=== PATIENT | male | born 1995 ===

== ENCOUNTER 2024-08-27 13:32 | Outpatient (AMB) | payer OTHER, SELFPAY ==
[2024-08-27 13:34] VITALS: BP 114/80; PULSE 79; RESP 16; TEMP 37.2; O2SAT 97; BMI 26.4
--- NOTE | 2024-08-27 13:34 | A.OFFPC_ITS ---
Vital Signs 08/27/24 13:34 Height 5 ft 9 in Weight 178 lb 12.8 oz BMI 26.4 BP 114/80 Blood Pressure Location Lt brachial Position Sitting Respiration 16 Pulse 79 Pulse Source Pulse Oximeter Temp 98.9 F Temp Source Oral Pulse Oximetry (%) 97 Oxygen Delivery Method Room Air Intake Visit Reasons: PHARMACY BENEFIT MANAGER-PE Intake Note: Patient is a new patient here to establish care. Transferring care from [facility] in [place], [place]. Medical records have not been requested and have not been received. Patient completed Authorization to Release Medical Information form today. 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 Nguyen, [facility] in [place], [place] Last visit: October 2023 Last PE:May, Specialist no OBGYN:n/a Past medical history: eczema-reports seeing a credit operations processor but he thinks that it is stress related Medications: Family HX: Problem: The patient is a 29-year-old male presenting with requests for a dermatology referral and management of insomnia and anxiety. The patient had a severe allergic reaction to terbinafine, with an onset of hives occurring a few weeks after initiation, historically prescribed for toenail fungus by a credit operations processor. The patient reported significant and rapid weight fluctuations, both gain, and loss, each of approximately 10 pounds, without notable changes in exercise f requency or diet. There is a longstanding issue with anxiety, which manifests as difficulty in sleep onset due to intrusive thoughts. Despite experiencing anxiety from a young age, therapeutic interventions, including counseling and medications such as SSRIs, have proven insufficient or resulted in undesired side effects. However, the patient reports taking Zoloft for only 4 weeks, which might have not been enough to time or sufficient dose to make a difference; this was explained to the patient. The patient expresses a preference for non-pharmacological interventions for anxiety. The patient's insomnia has been persistent and exacerbated by anxiety, and previous trials with melatonin lead to adverse effects of grogginess without effective improvement in sleep quality. There is concern over potential food- induced bloating and discomfort, with dairy eliminated from the diet without full resolution. The patient is interested in further exploration of possible food allergies or sensitivities. [facility] Medical History (Updated 08/31/24 @ 20:33 by AZAM Mckinney) Eczema Surgical History Hx of cosmetic surgery Family History Mother FH: mental illness Bipolar depression Anxiety Family history of substance abuse Father High cholesterol Social History Household Members: Significant Other Housing: Apartment Alcohol intake: current Alcohol intake frequency: holidays/special occasions only Alcohol type: other Comment: Mixed drinks Patient Tobacco Use Status: Never used Tobacco Tobacco use type: Cigarette e-Cigarette/Vaping Use: Never Used Second Hand Smoke Exposure: Yes service: No Current occupational status: employed Current occupation: Human Resource Cognitive needs: No Hearing needs: No Vision needs: No Questionnaire PHQ-9 Over the last 2 weeks, how often have you been bothered by any of the following problems? 1. Little interest or pleasure in doing things: not at all 2. Feeling down, depressed, or hopeless: not at all 3. Trouble falling or staying asleep, or sleeping too much: several days 4. Feeling tired or having little energy: several days 5. Poor appetite or overeating: not at all 6. Feeling bad about yourself - or that you are a failure or have let yourself or your family down: several days 7. Trouble concentrating on things, such as reading the newspaper or watching television: several days 8. Moving or speaking so slowly that other people could have noticed. Or the opp osite - being so fidgety or restless that you have been moving around a lot more than usual: not at all 9. Thoughts that you would be better off or of hurting yourself in some way: not at all Total score: 4 Depression Screening Interpretation: Negative Depression Screening Done: Yes 21995 - PHQ-9 Billing: Yes Source: Developed by Drs. Esequiel De León, Nolvia Samaniego, Bhavik Marie and colleagues, with an educational mariola from [employer]. Thrive Questionnaire Date Thrive assessed: 08/27/24 I am a: Patient What is your living situation today?: I have a steady place to live Within the past 12 months, did the food you bought not last and you didn't have the money to get more?: Never true Within the past 12 months, did you worry whether your food would run out before you got money to buy more?: Never true Do you have trouble paying for medicines?: No Do you have trouble getting transportation to medical appointments?: No Do you have trouble paying your heating and electricity bill?: No Do you have trouble taking care of your child, family member or friend?: No Do you have trouble with day-to-day activities such as bathing, preparing meals, shopping, managing finances, etc.?: No Are you currently unemployed and looking for a job?: No Are you interested in more education?: Yes Please select the resources that you would like help with: Education Currently or been in a relationship where the following occur: No concerns reported THRIVE Score: 0 AUDIT C Alcohol Use Questionnaire (AUDIT-C) 1. How often do you have a drink containing alcohol?: Monthly or less 2. How many drinks containing alcohol do you have on a typical day when you are drinking?: 1 or 2 3. How often do you have six or more drinks on one occasion?: Never Total Score: 1 Score Reviewed/Action Taken: No PATRICIA-7 AMB Questionnaire PATRICIA-7 Date PATRICIA - 7 assessed: 08/27/24 Feeling nervous, anxious, or on edge: 1 = Several days Not being able to stop or control worryin = Several days Worrying too much about different things: 1 = Several days Trouble relaxin = Several days Being so restless that it is hard to sit still: 1 = Several days Becoming easily annoyed or irritable: 1 = Several days Feeling afraid as if something awful might happen: 1 = Several days Total PATRICIA-7 score (0-4 normal; 5-9 mild; 10-14 moderate; 15-21 severe): 7 Source: Developed by Drs. Esequiel De León, Nolvia Samaniego, Bhavik Marie and colleagues, with an educational mariola from [employer]. PATRICIA-7 Assessment Billing PATRICIA-7 Assessment Tool: PATRICIA-7 Assessment 18913 Review of Systems Const Denies headache(s) Eyes Denies loss of vision ENT Denies vertigo, Denies dizziness, Denies headache(s) and Denies sore throat Card Denies chest pain, Denies leg edema and Denies lightheadedness Resp Denies cough, Denies hemoptysis and Denies wheezing GI Denies abdominal pain, Denies melena, Reports bloating, Denies constipation, Denies diarrhea and Denies vomiting Denies dysuria, Denies urinary frequency and Denies urinary urgency Musc Denies arthralgias, Denies joint swelling, Denies numbness and Denies tingling Skin/Breast Reports rash (History of eczema) and Reports other (Toenail fungus) Neuro Denies Abnormal speech present, Denies behavioral changes, Denies vertigo, Denies dizziness, Denies headache(s), Denies loss of vision, Denies memory loss, Denies numbness and Denies tingling Psych Reports anxiety, Denies behavioral changes, Denies depression, Denies memory loss, Denies panic attacks and Reports other (insomnia) Lucio/Lymph Denies easy bleeding and Denies easy bruising Aller/Immun Denies wheezing Physical exam (Primary Care) Vital Signs: Last Vital Signs Temp 98.9 F 08/27/24 13:34 Pulse 79 08/27/24 13:34 Resp 16 08/27/24 13:34 BP 114/80 08/27/24 13:34 Pulse Ox 97 08/27/24 13:34 Oxygen Delivery Method Room Air 08/27/24 13:34 BMI result Body Mass Index 26.4 Tobacco/Smoking Status: Tobacco use Status Tobacco use date assessed 08/27/24 08/27/24 13:54 Patient Tobacco Use Status Never used Tobacco 08/27/24 13:54 Tobacco use type Cigarette 08/27/24 13:54 e-Cigarette/Vaping Use Never Used 08/27/24 13:54 PHQ-9: PHQ-9 Score PHQ-9: Total score 4 08/31/24 20:00 Depression Screening Interpretation: Negative Thrive Assessment: Date of Thrive Assessment Date Thrive assessed 08/27/24 08/27/24 13:54 Currently or been in a relationship where the following occur: No concerns reported Const General: healthy appearing, no acute distress, alert and awake Nutritional Appearance: well nourished Orientation/consciousness: oriented to person, oriented to place and oriented to time HENMT Ears: TM's normal bilaterally General nose exam: Normal nasal mucous membranes and turbinates present Eyes Conjunctivae: conjunctivae normal Sclerae: sclerae normal Pupils: Equal, round and reactive pupils present Neck Neck: Yes no lymphadenopathy and Yes no JVD Thyroid: Thyroid normal Carotids: no bruits Resp Effort & Inspection: normal respiratory effort and not tachypneic Auscultation: no crackles, no rales, no rhonchi and no wheezes Cardio Rate: regular rate Rhythm: regular rhythm Heart sounds: no murmurs and normal S1 and S2 GI Palpation (GI): Soft to palpation, nontender, no hepatomegaly and no splenomegaly Auscultation: normal bowel sounds Skin General skin exam: dry skin Nails: other (Toenail fungus) Neuro General: oriented to person, oriented to place and oriented to time Cranial nerves: Yes Equal, round and reactive pupils present Speech: No Abnormal speech present Gait exam (Neuro): Normal gait present Motor exam (neuro): no tremor noted Extrem Right upper extremity: full ROM Left upper extremity: full ROM Right lower extremity: full ROM; no edema Left lower extremity: full ROM; no edema Psych Mental Status: mental status grossly normal Speech and movement: Normal speech and movement present Affect: normal affect Attitude: cooperative Thought process: Normal thought process present Coding Level of Care Code New Pt Level 4 (79505) Diagnoses Eczema, unspecified type L30.9 Eczema type: unspecified Anxiety F41.9 Insomnia, unspecified type G47.00 Insomnia type: unspecified Abdominal bloating R14.0 Fluctuation of weight R68.89 Toenail fungus B35.1 Additional Codes PATRICIA-7 Assessment Billing - PATRICIA-7 Assessment Tool: PATRICIA-7 Assessment 85832 ([id number]) PHQ-9 - 55740 - PHQ-9 Billing: Yes ([id number]) Time Spent (min) 39 Assessment & Plan Assessment & Plan (1) Eczema: Code(s): L30.9 - Dermatitis, unspecified Category: Medical Qualifiers: Eczema type: unspecified Qualified Code(s): L30.9 - Dermatitis, unspecified Plan: Reports history of eczema and requesting a referral to Dermatology (2) Anxiety: Code(s): F41.9 - Anxiety disorder, unspecified Category: Medical Plan: Patient reports ongoing anxiety starting from a young age. Reports ineffective counseling and treatment was Zoloft. It was noted that the patient was started on Zoloft and self discontinue this medication 4 weeks in without tapering. Explained to the patient that this medication needs time to buildup in his syst em and it usually requires dose adjustment. He remains adamant about not wanting to speak to a therapist or being treated medically. Patient will rather go about this the natural route. (3) Insomnia: Code(s): G47.00 - Insomnia, unspecified Category: Medical Qualifiers: Insomnia type: unspecified Qualified Code(s): G47.00 - Insomnia, unspecified Plan: Complaints of insomnia reports that he tried melatonin but this made him feel groggy in the morning. The patient also reports eating late, close to bedtime and also being on his phone while in bed. Reinforced sleep hygiene. Offered to start the patient on a small dose of trazodone but he declined. (4) Abdominal bloating: Code(s): R14.0 - Abdominal distension (gaseous) Category: Medical Plan: Patient reports that he has an intolerance to dairy products and certain foods. He is interested on doing a food allergy testing. Educate the patient on low FODMAP diet chart. Recommend that he start looking at foods that are high on the list and eliminating them to see if he feels better. (5) Fluctuation of weight: Code(s): R68.89 - Other general symptoms and signs Category: Medical Plan: Patient reports that it is easy for him to put weight on but is hard to lose it, even though, he goes to the gym frequently every week. We will order a comprehensive set of labs to further evaluate (6) Toenail fungus: Code(s): B35.1 - Tinea unguium Category: Medical Plan: Ongoing, recalls being treated by terbinafine in couple of weeks into treatment developed severe allergy. We will refer the patient back to Dermatology to evaluate for possible further treatment options. Orders: Orders Complete Blood Count Auto Diff 08/27/24 F41.9 - Anxiety disorder, unspecified, G47.00 - Insomnia, unspecified, L30.9 - Dermatitis, unspecified, Z76.89 - Persons encountering health services in other specified circumstances Comprehensive [facility]. Panel Fast 08/27/24 F41.9 - Anxiety disorder, unspecified, G47.00 - Insomnia, unspecified, L30.9 - Dermatitis, unspecified, Z76.89 - Persons encountering health services in other specified circumstances Lipid Panel 08/27/24 F41.9 - Anxiety disorder, unspecified, G47.00 - Insomnia, unspecified, L30.9 - Dermatitis, unspecified, Z76.89 - Persons encountering health services in other specified circumstances UA CC w/rflx Micro + Cult 08/27/24 F41.9 - Anxiety disorder, unspecified, G47.00 - Insomnia, unspecified, L30.9 - Dermatitis, unspecified, Z76.89 - Persons encountering health services in other specified circumstances Vitamin D 25-OH Total 08/27/24 F41.9 - Anxiety disorder, unspecified, G47.00 - Insomnia, unspecified, L30.9 - Dermatitis, unspecified, Z76.89 - Persons encountering health services in other specified circumstances TSH reflex Free T4 08/27/24 F41.9 - Anxiety disorder, unspecified, G47.00 - Insomnia, unspecified, L30.9 - Dermatitis, unspecified, Z76.89 - Persons encountering health services in other specified circumstances Glucose Fasting 08/27/24 F41.9 - Anxiety disorder, unspecified, G47.00 - Insomnia, unspecified, L30.9 - Dermatitis, unspecified, Z76.89 - Persons encountering health services in other specified circumstances Referrals Dermatology Referral B35.1 - Tinea unguium, L30.9 - Dermatitis, unspecified
== END 2024-08-27 14:28 | disposition home or self-care (01) ==
LOC: HO.HMCH 13:33
DX: L30.9 Dermatitis, unspecified (principal); F41.9 Anxiety disorder, unspecified; G47.00 Insomnia, unspecified; R14.0 Abdominal distension (gaseous); R68.89 Other general symptoms and signs; B35.1 Tinea unguium

== ENCOUNTER → 2024-08-27 13:32 | Outpatient (BNVA) | payer OTHER, SELFPAY | DX: Z76.89 Persons encountering health services in other specified circumstances (principal); L30.9 Dermatitis, unspecified; F41.9 Anxiety disorder, unspecified; G47.00 Insomnia, unspecified; R14.0 Abdominal distension (gaseous); R68.89 Other general symptoms and signs; B35.1 Tinea unguium; Z13.30 Encounter for screening examination for mental health and behavioral disorders, unspecified | CPT/HCPCS: 96127; 99202 ==

== ENCOUNTER 2024-10-21 07:01 | Outpatient (REF) | payer OTHER, SELFPAY ==
[2024-10-21 07:19] LABS: MANUAL DIFF FLAG NO
[2024-10-21 07:35] LABS: Hematocrit 42.6 % (42.0-52.0); Hemoglobin 14.7 g/dl (14.0-18.0); Imm Gran Abs Auto 0.01 X10*3/uL (0.00-0.03); Imm Gran Pct Auto 0.2 % (0.0-0.4); Lymphocytes Absolute Auto 1.9 X10*3/uL (1.2-4.9); Mean Corpuscular HGB Conc 34.5 g/dl (31.0-36.0); Mean Corpuscular Hemoglobin 30.5 pg (27.0-33.0); Mean Corpuscular Volume 88.4 fL (80.0-98.0); NRBC Abs Auto 0.000 X10*3/uL (0.0-0.012); NRBC Pct Auto 0.0 /100WBC (0.0-0.2); Platelet Count 187 X10*3/uL (160-400); Red Blood Count 4.82 X10*6/uL (4.60-5.80); White Blood Count 4.7 X10*3/uL (4.8-10.8)
[2024-10-21 07:58] LABS: Appearance Urine Clear; Glucose Urine UA Negative (Negative); PH 7.0 (5.0-9.0); Specific Gravity - Urine <= 1.005 (1.005-1.025)
[2024-10-21 08:17] LABS: Alanine Aminotransferase 24 U/L (0-40); Albumin Level 4.5 g/dL (3.5-5.0); Alkaline Phosphatase 75 U/L (39-117); Anion Gap 11 (12-20); Aspartate Amino Transferase 22 U/L (5-37); Blood Urea Nitrogen 10 mg/dL (9-16); Calcium 9.0 mg/dL (8.4-10.2); Carbon Dioxide 25 mmol/L (22-29); Chloride 107 mmol/L (96-108); Cholesterol 198 mg/dL (<200); Estimated Glomerular Filt Rate > 60; HDL Cholesterol 57 mg/dL (>40); Potassium 4.1 mmol/L (3.3-5.1); Sodium 139 mmol/L (135-145); Total Protein 6.9 g/dL (6.5-8.0); Triglycerides 65 mg/dL (<150)
== END 2024-10-21 07:02 | disposition home or self-care (01) ==
LOC: HO.LAB 07:01
DX: Z76.89 Persons encountering health services in other specified circumstances (principal); F41.9 Anxiety disorder, unspecified; G47.00 Insomnia, unspecified; L30.9 Dermatitis, unspecified
CPT/HCPCS: 36415; 80053; 80061; 81003; 82306; 84443; 85025

== ENCOUNTER 2024-10-23 15:24 | Outpatient (AMB) | payer OTHER, SELFPAY ==
[2024-10-23 15:27] VITALS: BP 120/78; PULSE 72; RESP 16; TEMP 37.1; O2SAT 98; BMI 26.7
--- NOTE | 2024-10-23 15:27 | A.OFFPC_ITS ---
Vital Signs 10/23/24 15:27 Height 5 ft 9 in Weight 181 lb 2 oz BMI 26.7 BP 120/78 Blood Pressure Location Lt brachial Position Sitting Respiration 16 Pulse 72 Pulse Source Pulse Oximeter Temp 98.7 F Temp Source Oral Pulse Oximetry (%) 98 Oxygen Delivery Method Room Air Intake Visit Reasons: annual exam Restaurant Manager Required: No Accompanied by: Self / Same As Patient Allergies terbinafine Allergy (Severe, Uncoded 10/23/24 15:53) Hives Medication List - Last Reconciled 10/23/24 by AZAM Mckinney No Known Home Meds Tobacco use date assessed: 10/23/24 Dental Screening Dental Screen Date: 10/23/24 Did you have a dental visit in the last 12 months?: Yes Did you have a dental problem in the last 6 months where you did not have access to dental care?: No Was dental information given to patient?: Patient has dentist HPI annual exam HPI Details The patient is presenting for annual physical Dentist: two year Eye: no, reports that he will check if his insurance covers eye exam Snellen: Right: Left: Corrected vision:no STI screening:n/a Colonoscopy:n/a Pap Smer:n/a PHQ-9: Flu: he does not usually take the flu vaccines COVID:x2 Tdap:2020 Diet:regular Exercise: very active The patient is a 29-year-old male presenting for a wellness visit and management of hypercholesterolemia and vitamin D deficiency. He reports a history of hypercholesterolemia, with a recent LDL cholesterol level of 128 mg/dL, which is above the desired range of less than 100 mg/dL. The patient has been advised to reduce intake of foods high in cholesterol, such as red meat and shellfish, and to consume these foods in moderation. The patient also has a history of vitamin D deficiency, with a recent level of 29 ng/mL, which is slightly below the recommended level of 30 ng/mL. He has been advised to take a vitamin D3 supplement to improve his levels, especially during the winter months when sunlight exposure is limited. The patient reports difficulty losing weight despite being physically active and maintaining a healthy diet. He engages in regular cardiovascular exercise and weightlifting more than four times a week, and he avoids fried foods and sugary drinks. There is a family history of hypercholesterolemia, with his father having similar issues. l [facility] Medical History Eczema Surgical History Hx of cosmetic surgery Family History Mother FH: mental illness Bipolar depression Anxiety Family history of substance abuse Father High cholesterol Social History Household Members: Significant Other Housing: Apartment Alcohol intake: current Alcohol intake frequency: holidays/special occasions only Alcohol type: other Comment: Mixed drinks Patient Tobacco Use Status: Never used Tobacco Tobacco use type: Cigarette e-Cigarette/Vaping Use: Never Used Second Hand Smoke Exposure: Yes service: No Current occupational status: employed Current occupation: Human Resource Cognitive needs: No Hearing needs: No Vision needs: No Questionnaire Thrive Questionnaire Date Thrive assessed: 10/23/24 I am a: Patient What is your living situation today?: I have a steady place to live Within the past 12 months, did the food you bought not last and you didn't have the money to get more?: Never true Within the past 12 months, did you worry whether your food would run out before you got money to buy more?: Never true Do you have trouble paying for medicines?: No Do you have trouble getting transportation to medical appointments?: No Do you have trouble paying your heating and electricity bill?: No Do you have trouble taking care of your child, family member or friend?: No Do you have trouble with day-to-day activities such as bathing, preparing meals, shopping, managing finances, etc.?: No Are you currently unemployed and looking for a job?: No Are you interested in more education?: Yes Please select the resources that you would like help with: Education Currently or been in a relationship where the following occur: No concerns reported THRIVE Score: 0 PATRICIA-7 AMB Questionnaire PATRICIA-7 Date PATRICIA - 7 assessed: 10/23/24 Source: Developed by Drs. Esequiel De León, Nolvia Samaniego, Bhavik Marie and colleagues, with an educational mariola from [email or web address]. Review of Systems Const Denies headache(s) Eyes Denies loss of vision ENT Denies vertigo, Denies dizziness, Denies headache(s) and Denies sore throat Card Denies chest pain, Denies leg edema and Denies lightheadedness Resp Denies cough, Denies hemoptysis and Denies wheezing GI Denies abdominal pain, Denies melena, Denies constipation, Denies diarrhea and Denies vomiting Denies dysuria, Denies urinary frequency and Denies urinary urgency Musc Denies arthralgias, Denies joint swelling, Denies numbness and Denies tingling Neuro Denies Abnormal speech present, Denies behavioral changes, Denies vertigo, Denies dizziness, Denies headache(s), Denies loss of vision, Denies memory loss, Denies numbness and Denies tingling Psych Denies anxiety, Denies behavioral changes, Denies depression, Denies memory loss and Denies panic attacks Lucio/Lymph Denies easy bleeding and Denies easy bruising Aller/Immun Denies wheezing Physical exam (Primary Care) Vital Signs: Last Vital Signs BP 120/78 10/23/24 15:27 Oxygen Delivery Method Room Air 10/23/24 15:27 BMI result Body Mass Index 26.7 Tobacco/Smoking Status: Tobacco use Status Tobacco use date assessed 10/23/24 10/23/24 15:31 Patient Tobacco Use Status Never used Tobacco 10/23/24 15:28 Tobacco use type Cigarette 10/23/24 15:28 e-Cigarette/Vaping Use Never Used 10/23/24 15:28 Thrive Assessment: Date of Thrive Assessment Date Thrive assessed 10/23/24 10/23/24 15:31 Currently or been in a relationship where the following occur: No concerns reported Const General: healthy appearing, no acute distress, alert and awake Nutritional Appearance: well nourished Orientation/consciousness: oriented to person, oriented to place and oriented to time HENMT Ears: TM's normal bilaterally General nose exam: Normal nasal mucous membranes and turbinates present Eyes Conjunctivae: conjunctivae normal Sclerae: sclerae normal Pupils: Equal, round and reactive pupils present Neck Neck: Yes no lymphadenopathy and Yes no JVD Thyroid: Thyroid normal Carotids: no bruits Resp Effort & Inspection: normal respiratory effort and not tachypneic Auscultation: no crackles, no rales, no rhonchi and no wheezes Cardio Rate: regular rate Rhythm: regular rhythm Heart sounds: no murmurs and normal S1 and S2 GI Palpation (GI): Soft to palpation, nontender, no hepatomegaly and no splenome du Auscultation: normal bowel sounds General: Yes no CVA tenderness Back/Spine/Pelvis Back: no CVA tenderness Skin General skin exam: no rashes or lesions noted and dry skin Neuro General: oriented to person, oriented to place, oriented to time and CN's II-XI intact bilaterally Cranial nerves: Yes Equal, round and reactive pupils present Speech: No Abnormal speech present Gait exam (Neuro): Normal gait present Motor exam (neuro): no tremor noted Deep tendon reflexes (DTR's): Right triceps reflex intensity grade: 2+, Left triceps reflex intensity grade: 2+, Rt Biceps (C5, C6): 2+, Left biceps reflex intensity grade: 2+, Right brachioradialis reflex intensity grade: 2+, Left brachioradialis reflex intensity grade: 2+, Right patellar reflex intensity grade: 2+, Left patellar reflex intensity grade: 2+, Right ankle reflex intensity grade: 2+ and Left ankle reflex intensity grade: 2+ Extrem Right upper extremity: full ROM Left upper extremity: full ROM Right lower extremity: full ROM; no edema Left lower extremity: full ROM; no edema Psych Mental Status: mental status grossly normal Speech and movement: Normal speech and movement present Affect: normal affect Attitude: cooperative Thought process: Normal thought process present Results Reviewed Results Reviewed: Laboratory Tests 10/21/24 10/21/24 07:13 07:17 WBC 4.7 L RBC 4.82 Hgb 14.7 Hct 42.6 MCV 88.4 MCH 30.5 MCHC 34.5 RDW 13.2 Plt Count 187 MPV 9.8 Sodium 139 Potassium 4.1 Chloride 107 Carbon Dioxide 25 Anion Gap 11 L BUN 10 Creatinine 0.84 Estimated GFR > 60 Fasting Glucose 93 Calcium 9.0 Total Bilirubin 0.7 AST 22 ALT 24 Alkaline Phosphatase 75 Total Protein 6.9 Albumin 4.5 Triglycerides 65 Cholesterol 198 LDL Cholesterol, Calc 128 H HDL Cholesterol 57 25-OH Vitamin D Total 29.9 L TSH 2.54 Urine Color Yellow Urine Appearance Clear Urine pH 7.0 Ur Specific [place] <= 1.005 Urine Protein Negative Urine Glucose (UA) Negative Urine Ketones Negative Urine Blood Negative Urine Nitrite Negative Ur Leukocyte Esterase Negative Coding Level of Care Code Est Pt Prev Care [id number]) Diagnoses Annual physical exam Z00.00 Overweight (BMI 25.0-29.9) E66.3 Eczema, unspecified type L30.9 Eczema type: unspecified Anxiety F41.9 Insomnia, unspecified type G47.00 Insomnia type: unspecified Abdominal bloating R14.0 Toenail fungus B35.1 Pure hypercholesterolemia E78.00 Hyperlipidemia type: pure hypercholesterolemia Vitamin D deficiency E55.9 Time Spent (min) 38 Assessment & Plan Assessment & Plan (1) Annual physical exam: Code(s): Z00.00 - Encounter for general adult medical examination without abnormal findings Category: Medical Plan: Preventative guidelines and recent labs reviewed with the patient. The patient is due for an eye and ear exams. Reports that he will check if his insurance covers these exams. He is overall doing well. (2) Overweight (BMI 25.0-29.9): Code(s): E66.3 - Overweight Category: Medical Plan: The patient BMI is 26.7, he reports that it has been hard for him loose weight and he religiously goes to the gym and does not have a bad diet. Explained to the patient that this might his diet. Will refer him to a drill setup operator to assist with food choices. (3) Eczema: Code(s): L30.9 - Dermatitis, unspecified Category: Medical Qualifiers: Eczema type: unspecified Qualified Code(s): L30.9 - Dermatitis, unspecified Plan: Reports history of eczema. He requested to see dermatology on his last visit Referral was placed on his previous visit (4) Anxiety: Code(s): F41.9 - Anxiety disorder, unspecified Category: Medical Plan: Patient reports ongoing anxiety starting from a young age. Reports ineffective counseling and treatment was Zoloft. It was noted that the patient was started on Zoloft and self discontinue this medication 4 weeks in without tapering. Explained to the patient that this medication needs time to buildup in his system and it usually requires dose adjustment. He remains adamant about not wanting to speak to a therapist or being treated medically. Patient will rather go about this the natural route. (5) Insomnia: Code(s): G47.00 - Insomnia, unspecified Category: Medical Qualifiers: Insomnia type: unspecified Qualified Code(s): G47.00 - Insomnia, unspecified Plan: Complaints of insomnia reports that he tried melatonin but this made him feel groggy in the morning. The patient also reports eating late, close to bedtime and also being on his phone while in bed. Reinforced sleep hygiene. Offered to start the patient on a small dose of trazodone but he declined. (6) Abdominal bloating: Code(s): R14.0 - Abdominal distension (gaseous) Category: Medical Plan: Patient reports that he has an intolerance to dairy products and certain foods. He is interested on doing a food allergy testing. Educate the patient on low FODMAP diet chart. Recommend that he start looking at foods that are high on the list and eliminating them to see if he feels better. (7) Toenail fungus: Code(s): B35.1 - Tinea unguium Category: Medical Plan: Ongoing, recalls being treated by terbinafine in couple of weeks into treatment developed severe allergy. We will refer the patient back to Dermatology to evaluate for possible further treatment options. (8) HLD (hyperlipidemia): Code(s): E78.5 - Hyperlipidemia, unspecified Category: Medical Qualifiers: Hyperlipidemia type: pure hypercholesterolemia Qualified Code(s): E78.00 - Pure hypercholesterolemia, unspecified Plan: The patient LDL 128, goal is less than 100. The patient reports that he does eat a lot of red meats and pork. Discussed lifestyle modifications including dietary changes and physical activity Given the patient low risk, will have him follow up in one year (9) Vitamin D deficiency: Code(s): E55.9 - Vitamin D deficiency, unspecified Category: Medical Plan: vitamin 29, encouraged vitamin D3 1000IU OTC daily Plan Return in one year for annual physical Orders: Referrals Nutrition/Dietitian Referral E66.3 - Overweight
== END 2024-10-23 17:03 | disposition home or self-care (01) ==
LOC: HO.HMCH 15:25
DX: Z00.00 Encounter for general adult medical examination without abnormal findings (principal); E66.3 Overweight; L30.9 Dermatitis, unspecified; F41.9 Anxiety disorder, unspecified; G47.00 Insomnia, unspecified; R14.0 Abdominal distension (gaseous); B35.1 Tinea unguium; E78.00 Pure hypercholesterolemia, unspecified; E55.9 Vitamin D deficiency, unspecified

== ENCOUNTER → 2024-10-23 15:24 | Outpatient (BNVA) | payer OTHER, SELFPAY | DX: Z00.00 Encounter for general adult medical examination without abnormal findings (principal); E66.3 Overweight; Z68.26 Body mass index [BMI] 26.0-26.9, adult; L30.9 Dermatitis, unspecified; F41.9 Anxiety disorder, unspecified; G47.00 Insomnia, unspecified; R14.0 Abdominal distension (gaseous); B35.1 Tinea unguium; E78.00 Pure hypercholesterolemia, unspecified; E55.9 Vitamin D deficiency, unspecified | CPT/HCPCS: 99395 ==